=== PATIENT | female | born 1960 | race Caucasian/White ===

== ENCOUNTER → 2017-08-15 | Outpatient (CLI) | payer BC ==
[2017-08-15 12:51] LABS: Basophils # (A) 0.1 k/uL (0-0.2); Basophils % (A) 1 %; CH 32.3; CHCM 33.2; Eosinophils # (A) 0.2 k/uL (0-0.7); Eosinophils % (A) 2 %; HCT 42.1 % (34.0-46.0); HDW 2.49; HGB 13.5 gm/dL (11.4-16.0); Luc # (Auto) 0.12; Luc % (Auto) 2; Lymphocytes # (A) 1.6 k/uL (1.0-4.8); Lymphocytes % (A) 21 %; MCH 31.4 pg (25.0-35.0); Mean Platelet Volume 7.6; Monocytes # (A) 0.5 k/uL (0-1.0); Monocytes % (A) 7 %; Neutrophils # (A) 5.1 k/uL (1.3-7.7); Neutrophils % (A) 68 %; RDW 13.4 % (11.5-15.5); WBC 7.5 k/uL (3.8-10.6); WBC (Perox) 7.55
[2017-08-15 13:00] LABS: ALT 120 U/L (9-52); AST 61 U/L (14-36); Blood Urea Nitrogen 19 mg/dL (7-17); Non-African American GFR(MDRD) >60 (>60 ml/min/1.73 sqM)
--- NOTE | 2017-08-15 13:27 | CT ---
EXAMINATION TYPE: CT iac w con DATE OF EXAM: 08/15/2017 COMPARISON: NONE HISTORY: Hearing loss not further specified per order. 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 CT DLP: 247 mGycm Automated exposure control for dose reduction was used. CONTRAST: CT scan of the IACs is performed with IV Contrast, patient injected with 100 mL of Omnipaque 300. FINDINGS: The external auditory canals show marked soft tissue density bilaterally right worse than l eft, suspected cerumen, correlate clinically. Mastoid air cells show some opacification bilaterally, right greater than left. Mastoiditis is to be considered. The middle ear ossicles are symmetric and unremarkable. There is patchy surrounding soft tissue density on the left identified. The scutum i s however slight preserved bilaterally. The cochlea and the semicircular canals are symmetric and un remarkable. Vestibular aqueduct and internal carotid canal appear unremarkable. Temporomandibular j oints are maintained bilaterally. There is mild lobulated mucosal thickening in inferior portion of left maxillary sinus. Nonformed rig ht frontal sinus is noted. Draining dural venous sinuses appear patent. Visualized portion of brain p arenchyma is unremarkable. IMPRESSION: Possible bilateral mastoiditis, suspect middle ear infection extension on the left. Corre late clinically.
== END | disposition home or self-care (01) ==
LOC: RADCTMAIN 11:39
PROVIDERS: ATTEND Otolaryngology
DX: H91.90 Unspecified hearing loss, unspecified ear (principal)
CPT/HCPCS: 82565; 84450; 84460; 84520; 85025; 70481; Q9967